=== PATIENT | male | born 1990 | race Asian ===

== ENCOUNTER 2020-08-12 18:36 | Emergency (ER) | payer SELFPAY ==
[~2020-08-12] VITALS: Ht 185.4 cm; Wt 68.0 kg
[2020-08-12] MEDS ORDERED: ONDANSETRON ODT 4 MG TAB PO ONE (21:15)
[2020-08-12] MEDS ORDERED: ACETAMINOPHEN/CODEINE#3 (300/30mg) TAB PO ONE (21:15)
[2020-08-12 21:59] VITALS: BP 118/79
== END 2020-08-12 22:07 | disposition home or self-care (01) ==
LOC: ER 18:36
DX: T23.221A Burn of second degree of single right finger (nail) except thumb, initial encounter (principal); T23.232A Burn of second degree of multiple left fingers (nail), not including thumb, initial encounter; T22.211A Burn of second degree of right forearm, initial encounter; T24.101A Burn of first degree of unspecified site of right lower limb, except ankle and foot, initial encounter; X08.8XXA Exposure to other specified smoke, fire and flames, initial encounter; Y93.89 Activity, other specified; Y92.89 Other specified places as the place of occurrence of the external cause; Y99.8 Other external cause status
CPT/HCPCS: 99283; Q0162